=== PATIENT | male | born 2000 ===

== ENCOUNTER 2023-03-05 15:51 | Emergency (ER) | payer OTHER ==
[~2023-03-05] VITALS: Ht 182.9 cm; Wt 65.8 kg
[2023-03-05 16:09] VITALS: BP 136/76
== END 2023-03-05 17:14 | disposition home or self-care (01) ==
LOC: ER 15:51
DX: S83.91XA Sprain of unspecified site of right knee, initial encounter (principal); M54.2 Cervicalgia; V69.88XA Occupant (driver) (passenger) of heavy transport vehicle injured in other specified transport accidents, initial encounter; W22.10XA Striking against or struck by unspecified automobile airbag, initial encounter; Z88.0 Allergy status to penicillin
CPT/HCPCS: 73562-RT; 96372; 99284-25; A9270; J1885